=== PATIENT | female | born 1955 | race Caucasian/White ===

== ENCOUNTER → 2017-03-30 | Outpatient (CLI) | payer BC ==
--- NOTE | 2017-03-30 15:16 | PN ---
A 62-year-old female patient coming in for a compliancy check. The patient was diagnosed having moderate to severe obstructive sleep apnea with an AHI of 17.5. Currently she is on a CPAP with a pressure of 14 cm of water. She is reporting excellent clinical response to the CPAP therapy and she is waking up much more refreshed and alert during the day. No snoring while on the CPAP machine. Her sleep quality has improved considerably. She is utilizing a full-face mask and she has a good mask seal. Her compliance data over the past 30 days shows excellent use with using CPAP for more than 4 hours 100% of the time. His average CPAP use is around 6.5 hours per night. Leak is only 10 L around the mask per minute and AHI while on treatment is down to 8.8. She has no specific complaints, otherwise. BP 117/71, pulse 65, respirations 16, saturation is 94% on room air. Elberta score 0, temperature 97.5. Weight is 227. GENERAL APPEARANCE: Calm, comfortable. HEENT: Short neck, crowding of the posterior pharynx. There is no goiter or neck masses. LUNGS: Clear to auscultation. HEART: Sounds are normal. Normal S1, S2. ABDOMEN: Soft, nontender. No organomegaly. EXTREMITIES: No edema. No cyanosis or clubbing. IMPRESSION: 1. Obstructive sleep apnea with an apnea-hypopnea index of 17.5, improved considerably with CPAP therapy. 2. Residual obstructive sleep apnea with occasional hypopneas, while on CPAP pressure of 14 cm of water. Apnea-hypopnea index while on treatment is still above 5. 3. Obesity. Body mass of 38. 4. Elberta score is down to 0 from a baseline of 10. 5. Ulcerative colitis. 6. Hypertension. 7. Secondary erythrocytosis. PLAN: Will make further adjustments to further improve the sleep apnea treatment. I am suggesting switch this patient to an auto CPAP unit with a minimum pressure of 4, maximum pressure of 16 and this will hopefully lower the AHI further below 5. Keep the same mask interface. Encourage weight loss, see me back in a year's time; earlier if needed. Her treatment is successful.
== END | disposition home or self-care (01) ==
LOC: SLEEP 11:20
PROVIDERS: ATTEND Internal Medicine Critical Care Medicine
DX: G47.33 Obstructive sleep apnea (adult) (pediatric) (principal); K51.90 Ulcerative colitis, unspecified, without complications; I10 Essential (primary) hypertension; D75.1 Secondary polycythemia; E66.9 Obesity, unspecified; Z68.38 Body mass index [BMI] 38.0-38.9, adult

== ENCOUNTER → 2018-06-14 | Outpatient (CLI) | payer BC ==
--- NOTE | 2018-06-14 15:53 | PN ---
PROGRESS NOTE SLEEP CENTER PROGRESS NOTE: This is a 63-year-old female patient coming in for an annual check regarding obstructive sleep apnea. She has an AHI of 17.6, consistent with moderate to severe disease, and the patient is currently on CPAP which is in APAP mode. Minimum pressure is 5, maximum pressure of 16. She is still being treated successfully. No respiratory difficulties. No nighttime heartburn, shortness of breath or chest pain. Snoring has subsided and the patient is waking up refreshed and alert during the day. Trego score is down to 2. Based on the compliance data, the patient has been utilizing her CPAP machine 6.6 hours per night with an average pressure of 15.6 L and a leak factor of 7 L/minute. Her AHI while on treatment is down to 3. Her mask is a Simplus small size. Weight is stable at 230. No interval weight loss or weight gain. No other new complaints or comorbidities over the past one year. REVIEW OF SYSTEMS: Twelve-point review of systems was done and the positive things are all mentioned above in the history of present illness. PHYSICAL EXAMINATION: BP is 132/78, pulse 82, respiratory rate 16, temperature 98.2, saturation 96% on room air. Height is 5 feet 4 inches, weight 230. BMI is 39.4. Trego score is 2. GENERAL APPEARANCE: Calm, comfortable. HEAD: Atraumatic, normocephalic. NECK: Supple. No JVD. No goiter or neck masses. Mallampati class IV. LUNGS: Clear to auscultation. HEART: Heart sounds are regular rate and rhythm. Normal S1, S2. No S3, S4. No murmurs. ABDOMEN: Soft, nontender. No organomegaly. EXTREMITIES: No edema. No cyanosis or clubbing. IMPRESSION: Obstructive sleep apnea, symptomatic, with AHI of 17, currently on APAP, with successful treatment. PLAN: 1. Continue APAP therapy. 2. Encourage weight loss. 3. Renew the CPAP supplies. 4. See me back in a year's time in followup, earlier if needed. MMCRISTINL / IJN: [id number] /
== END | disposition home or self-care (01) ==
LOC: SLEEP 14:29
PROVIDERS: ATTEND Internal Medicine Critical Care Medicine
DX: G47.33 Obstructive sleep apnea (adult) (pediatric) (principal); Z99.89 Dependence on other enabling machines and devices

== ENCOUNTER → 2021-12-11 | Outpatient (CLI) | payer MEDICARE ==
--- NOTE | 2021-12-11 17:58 | BD ---
EXAMINATION TYPE: Axial Bone Density DATE OF EXAM: 12/11/2021 COMPARISON: NONE CLINICAL HISTORY: 66 YR OLD FEMALE.....ICD-10 CODE: M85.9 BD DISORDER Height: 63 Weight: 223 FRAX RISK QUESTIONS: NOTHING TO NOTE HERE RISK FACTORS HISTORY OF: Postmenopausal woman: YES AT AGE 49 YRS OLD Hyperparathyroidism: NO Adrenal Insufficiency: NO MEDICATIONS: Additional Medications: BP MEDS, METFORMIN, VIT D AND CALCIUM, TYLENOL Additional History: HYPERTENSION, DIABETIC, OSTEOARTHRITIS, EXAM MEASUREMENTS: Bone mineral densitometry was performed using the Lenet System. Bone mineral density as measured about the Lumbar spine is: ----- L1-L4(G/cm2): 1.463 T Score Values are as follows: ----- L1: 1.9 ----- L2: 1.1 ----- L3: 2.3 ----- L4: 4.1 ----- L1-L4: 2.4 Bone mineral density FIRST DEXA SCAN AT [facility] Bone mineral density about the R hip (g/cm2): 1.000 Bone mineral density about the L hip (g/cm2): 1.090 T Score values are as follows: -----R Neck: -0.7 -----L Neck: -0.2 -----R Total: -0.1 -----L Total: 0.7 Bone mineral density FIRST DEXA STUDY AT [facility] FRAX%S: THERE IS A 6.8% CHANCE FOR A MAJOR OSTEOPOROTIC FX AND A 0.4% FOR HER HIPS......PROBABILI TY FOR FX IN 10 YRS TIME IMPRESSION: Normal (Values between +1 and -1 indicate normal bone mass). Consider repeating this study in 5 year s or sooner if there is some new clinical indication. NOTE: T-SCORE=SD OF THE YOUNG ADULT MEAN.
--- NOTE | 2021-12-12 13:44 | MM ---
Reason for exam: screening (asymptomatic). Last mammogram was performed 3 years and 1 month ago. History: Patient is postmenopausal. Physical Findings: A clinical breast exam by your physician is recommended on an annual basis and results should be correlated with mammographic findings. MG 3D Screening Mammo W/Cad Bilateral CC and MLO view(s) were taken. Prior study comparison: November 23, 2018, mammogram, performed at [facility]. November 08, 2017, mammogram, performed at [facility]. There are scattered fibroglandular densities. No significant changes when compared with prior studies. ASSESSMENT: Negative, BI-RAD 1 RECOMMENDATION: Routine screening mammogram of both breasts in 1 year.
== END | disposition home or self-care (01) ==
LOC: MERGE 07:00 → RADMAMWWP 07:00
PROVIDERS: ATTEND Family Medicine
DX: Z12.31 Encounter for screening mammogram for malignant neoplasm of breast (principal); Z78.0 Asymptomatic menopausal state
CPT/HCPCS: 77063; 77067; 77080

== ENCOUNTER 2022-09-29 15:34 | Emergency (ER) | payer MEDICARE ==
--- NOTE | 2022-09-29 16:54 | US ---
EXAMINATION TYPE: US venous doppler duplex LE RT DATE OF EXAM: 09/29/2022 4:42 PM COMPARISON: NONE CLINICAL HISTORY: pain tender no swelling no injury. Pain right lower leg SIDE PERFORMED: Right TECHNIQUE: The lower extremity deep venous system is examined utilizing real time linear array sonog duran with graded compression, doppler sonography and color-flow sonography. VESSELS IMAGED: Common Femoral Vein Deep Femoral Vein Greater Saphenous Vein * Femoral Vein Popliteal Vein Small Saphenous Vein * Proximal Calf Veins (* superficial vessels) Right Leg: No evidence of DVT as visualized Grayscale, color doppler, spectral doppler imaging performed of the deep veins of the lower extremiti es. There is normal flow, compressibility, vascular waveforms. IMPRESSION: No evidence of deep vein thrombosis of right lower extremity.
[2022-09-29] MEDS ORDERED: CYCLOBENZAPRINE 5 MG TAB PO STA (17:46)
--- NOTE | 2022-09-29 18:22 | ED ---
Extremity Problem HPI - General Chief complaint: Extremity Problem,Nontraumatic Stated complaint: Leg Cramping Time Seen by Provider: 09/29/22 17:32 Source: patient, RN notes reviewed Mode of arrival: wheelchair Limitations: no limitations - History of Present Illness Initial comments: This is a 67-year-old female who presents to the emergency department with right calf pain. States over the last 2-3 days, she has had severe cramping in the calf, making it difficult to walk. Describes the pain as being similar to a charley horse. Denies any pain in the back or elsewhere in the leg. She has no history of similar symptoms in the past. She called her primary care provider, who advised she come to the emergency department for imaging of the leg in the event she has a DVT. She denies any chest pain or shortness of breath. Denies any fevers, chills, sore throat, cough, dyspnea, chest pain, palpitations, abdominal pain, nausea, vomiting, diarrhea, back pain, or headaches. MD Complaint: extremity pain - Related Data Home Medications Medication Instructions Recorded Confirmed Ibuprofen [Motrin] 400 mg PO Q6HR PRN 07/14/17 07/14/17 Mesalamine [Delzicol] 800 mg PO TID 07/14/17 07/14/17 Triamterene/Hydrochlorothiazid 1 tab PO DAILY 07/14/17 07/14/17 [Triamterene-Hctz 37.5-25 mg Tb] trandolapriL [Mavik] 4 mg PO DAILY 07/14/17 07/14/17 Previous Rx's Medication Instructions Recorded Acetaminophen-Codeine 300-30mg 1 tab PO Q4H PRN #20 tablet 07/14/17 [Tylenol #3] Ciprofloxacin HCl [Cipro] 500 mg PO Q12HR #20 tablet 07/14/17 Ondansetron Odt [Zofran Odt] 4 mg PO Q8HR PRN #10 tab 07/14/17 metroNIDAZOLE [Flagyl] 500 mg PO TID #30 tab 07/14/17 Allergies Allergy/AdvReac Type Severity Reaction Status Date / Time Sulfa (Sulfonamide Allergy Rash/Hives Verified 11/25/21 15:16 Antibiotics) Review of Systems ROS Statement: Those systems with pertinent positive or pertinent negative responses have been documented in the HPI. ROS Other: All systems not noted in ROS Statement are negative. 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 Absent: respiratory distress, wheezes, rales, rhonchi, stridor Cardiovascular Exam: Present: regular rate, normal rhythm, normal heart sounds. Absent: systolic murmur, diastolic murmur, rubs, gallop, clicks Extremities exam: Present: calf tenderness (right), other (No erythema, swelling, or increased heat to the leg. 2+ dorsalis pedis and tibialis posterior pulses bilaterally. Capillary refill less than 1 second bilaterally.) Neurological exam: Present: alert, oriented X3, CN II-XII intact Psychiatric exam: Present: normal affect, normal mood Skin exam: Present: warm, dry, intact, normal color. Absent: rash Course Vital Signs 09/29/22 09/29/22 16:11 18:32 Temperature 97.5 F L Pulse Rate 69 63 Respiratory 16 18 Rate Blood Pressure 188/75 126/80 O2 Sat by Pulse 96 97 Oximetry Medical Decision Making - Medical Decision Making This is a 67-year-old female who presents to the emergency department with right leg pain. Lab work obtained and found to be nonactionable. Duplex ultrasound reveals no signs of a DVT. My interpretation of the x-ray of the tib-fib reveals no signs of fractures or dislocations. She was given a dose of Flexeril emergency department, which she states did not improve her symptoms. Advised the patient that at this point, we do not have a clear cause for her symptoms. This may be musculoskeletal in nature or related to a process that we are unable to diagnose here. There are no overlying skin changes and there is no vascular compromise. Advised that she alternate with ibuprofen and Tylenol and try applying hot and cold compresses. Also suggested topical medication such as lidocaine or capsaicin cream. Instructed her to follow-up with her primary care provider to discuss additional testing and treatment. Return precautions reviewed in depth, the patient is instructed to return to the emergency department with any new, worsening, or concerning symptoms. Patient verbalized understanding. This case was discussed in detail with the attending ED physician. Presentation, findings, and treatment plan discussed in detail as well. - Lab Data Result diagrams: 09/29/22 18:39 09/29/22 18:39 Lab Results 09/29/22 09/29/22 Range/Units 18:39 18:39 WBC 9.9 (3.8-10.6) k/uL RBC 5.12 (3.80-5.40) m/uL Hgb 16.7 H (11.4-16.0) gm/dL Hct 46.0 (34.0-46.0) % MCV 90.0 (80.0-100.0) fL MCH 32.6 (25.0-35.0) pg MCHC 36.2 (31.0-37.0) g/dL RDW 13.3 (11.5-15.5) % Plt Count 270 (150-450) k/uL MPV 7.4 Neutrophils % 55 % Lymphocytes % 36 % Monocytes % 5 % Eosinophils % 2 % Basophils % 1 % Neutrophils # 5.5 (1.3-7.7) k/uL Lymphocytes # 3.6 (1.0-4.8) k/uL Monocytes # 0.5 (0-1.0) k/uL Eosinophils # 0.2 (0-0.7) k/uL Basophils # 0.1 (0-0.2) k/uL ESR 6 (0-20) mm/hr Sodium 138 (137-145) mmol/L Potassium 3.5 (3.5-5.1) mmol/L Chloride 103 (98-107) mmol/L Carbon Dioxide 25 (22-30) mmol/L Anion Gap 10 mmol/L BUN 17 (7-17) mg/dL Creatinine 0.79 (0.52-1.04) mg/dL Est GFR (CKD-EPI)AfAm >90 (>60 ml/min/1.73 sqM) Est GFR (CKD-EPI)NonAf 79 (>60 ml/min/1.73 sqM) Glucose 97 (74-99) mg/dL Calcium 9.5 (8.4-10.2) mg/dL Magnesium 1.9 (1.6-2.3) mg/dL Total Bilirubin 0.5 (0.2-1.3) mg/dL AST 22 (14-36) U/L ALT 30 (4-34) U/L Alkaline Phosphatase 130 H (38-126) U/L C-Reactive Protein 0.7 (<1.0) mg/dL Total Protein 7.2 (6.3-8.2) g/dL Albumin 4.2 (3.5-5.0) g/dL TSH 1.420 (0.465-4.680) mIU/L - Radiology Data Radiology results: report reviewed, image reviewed Disposition Clinical Impression: Cramps of right lower extremity Disposition: HOME SELF-CARE Instructions (If sedation given, give patient instructions): Leg Cramps (ED) Additional Instructions: Return to the emergency department with any new, worsening, or concerning symptoms. Alternate with ibuprofen and Tylenol for pain relief. You can try topical medications as well such as lidocaine or capsaicin cream. Continue to apply ice and heat. Follow up with your primary care provider in 1-2 days. Is patient prescribed a controlled substance at d/c from ED?: No Referrals: Jesus Rascon III, MD [Primary Care Provider] - 1-2 days
[2022-09-29 18:58] LABS: Basophils # (A) 0.1 k/uL (0-0.2); Basophils % (A) 1 %; Eosinophils # (A) 0.2 k/uL (0-0.7); Eosinophils % (A) 2 %; HGB 16.7 gm/dL (11.4-16.0); Lymphocytes # (A) 3.6 k/uL (1.0-4.8); Lymphocytes % (A) 36 %; MCH 32.6 pg (25.0-35.0); MCHC 36.2 g/dL (31.0-37.0); Mean Platelet Volume 7.4; Monocytes # (A) 0.5 k/uL (0-1.0); Monocytes % (A) 5 %; Neutrophils # (A) 5.5 k/uL (1.3-7.7); Neutrophils % (A) 55 %; Platelet Count 270 k/uL (150-450); RBC 5.12 m/uL (3.80-5.40); RDW 13.3 % (11.5-15.5); WBC 9.9 k/uL (3.8-10.6)
[2022-09-29 19:11] LABS: ALT 30 U/L (4-34); AST 22 U/L (14-36); African American GFR (CKD) >90 (>60 ml/min/1.73 sqM); Albumin 4.2 g/dL (3.5-5.0); Alkaline Phosphatase 130 U/L (38-126); Anion Gap 10 mmol/L; Blood Urea Nitrogen 17 mg/dL (7-17); C Reactive Protein 0.7 mg/dL (<1.0); Calcium 9.5 mg/dL (8.4-10.2); Carbon Dioxide 25 mmol/L (22-30); Chloride 103 mmol/L (98-107); Glucose 97 mg/dL (74-99); Magnesium 1.9 mg/dL (1.6-2.3); Non-African American GFR(CKD) 79 (>60 ml/min/1.73 sqM); Potassium 3.5 mmol/L (3.5-5.1); Sodium 138 mmol/L (137-145); Total Bilirubin 0.5 mg/dL (0.2-1.3); Total Protein 7.2 g/dL (6.3-8.2)
--- NOTE | 2022-09-29 19:28 | XR ---
EXAMINATION TYPE: XR tibia fibula RT DATE OF EXAM: 09/29/2022 7:16 PM INDICATION: Patient age:Female; 67 years old; Reason for study: Pain; COMPARISON: None TECHNIQUE: The right tibia/fibula was examined in AP and lateral projections. FINDINGS: No evidence of any acute osseous pathology, joint dislocation, or soft tissue swelling is n oted. Osteophyte formation around the right knee including the tibial plateau and the patella. IMPRESSION: No evidence of acute fracture.
[2022-09-29 19:35] LABS: Erythrocyte Sedimentation Rate 6 mm/hr (0-20)
[2022-09-29] MEDS ORDERED: ACET/COD 300 MG/30 MG STARTER PACK 6 TAB BTL PO STA (19:44)
[2022-09-29 20:14] VITALS: BP 122/80; PULSE 78; RESP 16; TEMP 98.6
== END 2022-09-29 20:13 | disposition home or self-care (01) ==
LOC: EC 15:34
DX: R25.2 Cramp and spasm (principal); I10 Essential (primary) hypertension; Z88.2 Allergy status to sulfonamides
CPT/HCPCS: 36415; 80053; 83735; 84443; 85025; 85652; 86140; 99284

== ENCOUNTER 2022-11-12 11:07 | Observation (INO) | payer MEDICARE ==
[2022-11-12 11:30] LABS: Glucose,Whole Blood 97 mg/dL (70-110)
--- NOTE | 2022-11-12 11:37 | CT ---
EXAMINATION TYPE: CT brain wo con for TPA DATE OF EXAM: 11/12/2022 COMPARISON: None HISTORY: Stroke, neuro deficits CT DLP: 1103.[address] of the brain was performed. The ventricles, basal cisterns and sulci overlying the cerebral convexities demonstrate mild enlargem ent. There is no evidence for intracranial hemorrhage or sulcal effacement. There is decreased attenuation about the periventricular white matter and deep white matter of both c erebral hemispheres, compatible with chronic small vessel ischemia. Differential diagnosis does inclu de demyelination. No mass effects are seen.No midline shift. Osseous calvarium is intact. If symptoms persist consider MRI. IMPRESSION: 1. Age related atrophic and chronic small vessel ischemic change without acute intracranial process s een at this time.
[2022-11-12 11:50] LABS: Basophils # (A) 0.1 k/uL (0-0.2); Basophils % (A) 1 %; Eosinophils # (A) 0.2 k/uL (0-0.7); Eosinophils % (A) 2 %; HCT 44.7 % (34.0-46.0); HGB 15.9 gm/dL (11.4-16.0); Lymphocytes # (A) 3.5 k/uL (1.0-4.8); Lymphocytes % (A) 40 %; MCH 31.9 pg (25.0-35.0); MCHC 35.5 g/dL (31.0-37.0); MCV 89.8 fL (80.0-100.0); Monocytes # (A) 0.4 k/uL (0-1.0); Monocytes % (A) 5 %; Neutrophils # (A) 4.4 k/uL (1.3-7.7); Neutrophils % (A) 50 %; Platelet Count 255 k/uL (150-450); RBC 4.98 m/uL (3.80-5.40); RDW 13.5 % (11.5-15.5); WBC 8.7 k/uL (3.8-10.6)
--- NOTE | 2022-11-12 11:55 | CT ---
EXAMINATION TYPE: CT angio head neck DATE OF EXAM: 11/12/2022 COMPARISON: None HISTORY: Stroke, neuro deficits CT DLP: 253.5 mGycm CONTRAST: Performed with IV Contrast, patient injected with 65 mL of Isovue 370. Combination Contrast CTA cervical carotids and [place] CTA cervical carotids with 3-D recons truction Contrast CTA of the cervical carotids was performed 3-D reconstruction imaging obtained at a separate workstation. Right carotid system: Mild plaque is seen of the right common carotid artery. There is mild plaque a lso noted at the carotid bulb and proximal ICA. No significant diameter reduction. ECA is patent. Right vertebral artery appears unremarkable. Left carotid system: Mild plaque is seen of the left common carotid artery. There is mild plaque als o noted at the carotid bulb and proximal ICA. No significant diameter reduction. ECA is patent. Lef t vertebral artery appears unremarkable. IMPRESSION: 1. No significant diameter reduction to account for the patient's symptoms. CTA [place] with 3-D reconstruction Contrast CTA of the [place] was performed 3-D reconstruction imaging obtained at a separate workstation. Vertebrobasilar system as well as intracranial portions of the internal carotid arteries and their ma viola tributaries are patent. I do not see evidence for sizable aneurysm or vascular malformation. Pl ease note MRI provides greater sensitivity and specificity. Visualized brain appears grossly unremar kable. IMPRESSION: 1. No significant abnormality. NASCET criteria was used in interpretation of this exam?
[2022-11-12 12:00] LABS: ALT 45 U/L (4-34); African American GFR (CKD) >90 (>60 ml/min/1.73 sqM); Albumin 3.7 g/dL (3.5-5.0); Anion Gap 7 mmol/L; Blood Urea Nitrogen 13 mg/dL (7-17); Calcium 8.8 mg/dL (8.4-10.2); Carbon Dioxide 25 mmol/L (22-30); Chloride 104 mmol/L (98-107); Glucose 95 mg/dL (74-99); Non-African American GFR(CKD) 85 (>60 ml/min/1.73 sqM); Sodium 136 mmol/L (137-145); Total Bilirubin 0.6 mg/dL (0.2-1.3); Total Protein 6.7 g/dL (6.3-8.2)
[2022-11-12 12:05] LABS: INR 0.9 (<1.2); Partial Thromboplastin Time 22.7 sec (22.0-30.0); Prothrombin Time 9.6 sec (9.0-12.0)
[2022-11-12 12:06] LABS: AST 34 U/L (14-36); Alkaline Phosphatase 111 U/L (38-126); Potassium 3.8 mmol/L (3.5-5.1)
--- NOTE | 2022-11-12 12:29 | XR ---
EXAMINATION TYPE: XR chest 2V DATE OF EXAM: 11/12/2022 COMPARISON: NONE HISTORY: Shortness of breath TECHNIQUE: Frontal and lateral views of the chest are obtained. FINDINGS: Scattered senescent parenchymal changes noted. Hyperinflation compatible with COPD. No evidence for infiltrate. No evidence for atelectasis. Heart size is stable. Mediastinal structures are stable and grossly unremarkable. No evidence for hilar prominence. Degenerative changes dorsal spine. IMPRESSION: 1. No evidence for acute pulmonary disease.
[2022-11-12] MEDS ORDERED: ASPIRIN 325 MG TAB PO STA (12:47)
--- NOTE | 2022-11-12 12:47 | ED ---
Neuro HPI - General Chief Complaint: Neuro Symptoms/Deficit Stated Complaint: Stroke Time Seen by Provider: 11/12/22 11:20 Source: patient, family, EMS Mode of arrival: EMS Limitations: language barrier - History of Present Illness Is the patient presenting with stroke symptoms?: Yes Last Known Well Date: 11/12/22 Last Known Well Time: 10:44 Initial Comments: 67 her old female with past history of ulcerative colitis who presents to the emergency department for sudden speech loss. She was sitting at the kitchen table with her when she had sudden onset of aphasia. She could not verbalize anything. No incontinence of bowel sounds. She had no lateralizing symptoms of extremity weakness. No facial droop. She denies headaches or visual changes. EMS was called and they did bring the patient to the hospital after she only had symptoms for approximately 20 minutes. She denies previous history of stroke. Patient is not on a blood thinner. She denies any chest pain or short of breath. 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 - Related Data Home Medications: Home Medications Medication Instructions Recorded Confirmed Triamterene/Hydrochlorothiazid 1 tab PO DAILY 07/14/17 11/12/22 [Triamterene-Hctz 37.5-25 mg Tb] trandolapriL [Mavik] 4 mg PO DAILY 07/14/17 11/12/22 Ergocalciferol [Vitamin D2 (1250 1,250 mcg PO Q7D 11/12/22 11/12/22 Mcg = 31856 Iu)] metFORMIN HCL ER [Glucophage XR] 500 mg PO W/SUPPER 11/12/22 11/12/22 Previous Rx's Medication Instructions Recorded Aspirin 325 mg PO DAILY 42 Days #42 tab 11/13/22 Atorvastatin [Lipitor] 40 mg PO DAILY #30 tab 11/13/22 Famotidine [Pepcid] 20 mg PO DAILY 10 Days #10 tablet 11/13/22 Allergies/Adverse Reactions: Allergies Allergy/AdvReac Type Severity Reaction Status Date / Time Sulfa (Sulfonamide Allergy Rash/Hives Verified 11/12/22 11:33 Antibiotics) Review of Systems ROS Statement: Those systems with pertinent positive or pertinent negative responses have been documented in the HPI. ROS Other: All systems not noted in ROS Statement are negative. General Exam Limitations: language barrier General appearance: alert, in no apparent distress Head exam: Present: atraumatic, normocephalic, normal inspection Eye exam: Present: normal appearance, PERRL, EOMI. Absent: scleral icterus, conjunctival injection, periorbital swelling ENT exam: Present: normal exam, mucous membranes moist Neck exam: Present: normal inspection. Absent: tenderness, meningismus, lymphadenopathy Respiratory exam: Present: normal lung sounds bilaterally. Absent: respiratory distress, wheezes, rales, rhonchi, stridor Cardiovascular Exam: Present: regular rate, normal rhythm, normal heart sounds. Absent: systolic murmur, diastolic murmur, rubs, gallop, clicks GI/Abdominal exam: Present: soft, normal bowel sounds. Absent: distended, tenderness, guarding, rebound, rigid Extremities exam: Present: normal inspection, full ROM, normal capillary refill. Absent: tenderness, pedal edema, joint swelling, calf tenderness Back exam: Present: normal inspection Neurological exam: Present: alert, CN II-XII intact, other (completely nonverbal) Psychiatric exam: Present: normal affect, normal mood Skin exam: Present: warm, dry, intact, normal color. Absent: rash Stroke MDM - Lab Data Result diagrams: 11/12/22 11:33 11/13/22 06:20 Lab Results 11/12/22 11/12/22 11/12/22 Range/Units 11:29 11:33 11:33 WBC 8.7 (3.8-10.6) k/uL RBC 4.98 (3.80-5.40) m/uL Hgb 15.9 (11.4-16.0) gm/dL Hct 44.7 (34.0-46.0) % MCV 89.8 (80.0-100.0) fL MCH 31.9 (25.0-35.0) pg MCHC 35.5 (31.0-37.0) g/dL RDW 13.5 (11.5-15.5) % Plt Count 255 (150-450) k/uL MPV 7.0 Neutrophils % 50 % Lymphocytes % 40 % Monocytes % 5 % Eosinophils % 2 % Basophils % 1 % Neutrophils # 4.4 (1.3-7.7) k/uL Lymphocytes # 3.5 (1.0-4.8) k/uL Monocytes # 0.4 (0-1.0) k/uL Eosinophils # 0.2 (0-0.7) k/uL Basophils # 0.1 (0-0.2) k/uL PT 9.6 (9.0-12.0) sec INR 0.9 (<1.2) APTT 22.7 (22.0-30.0) sec Sodium (137-145) mmol/L Potassium (3.5-5.1) mmol/L Chloride (98-107) mmol/L Carbon Dioxide (22-30) mmol/L Anion Gap mmol/L BUN (7-17) mg/dL Creatinine (0.52-1.04) mg/dL Est GFR (CKD-EPI)AfAm (>60 ml/min/1.73 sqM) Est GFR (CKD-EPI)NonAf (>60 ml/min/1.73 sqM) Glucose (74-99) mg/dL POC Glucose (mg/dL) 97 (70-110) mg/dL POC Glu Registered Massage Therapist ID Dilip, Roseline Calcium (8.4-10.2) mg/dL Total Bilirubin (0.2-1.3) mg/dL AST (14-36) U/L ALT (4-34) U/L Alkaline Phosphatase (38-126) U/L Troponin I (0.000-0.034) ng/mL Total Protein (6.3-8.2) g/dL Albumin (3.5-5.0) g/dL 11/12/22 11/12/22 Range/Units 11:33 11:33 WBC (3.8-10.6) k/uL RBC (3.80-5.40) m/uL Hgb (11.4-16.0) gm/dL Hct (34.0-46.0) % MCV (80.0-100.0) fL MCH (25.0-35.0) pg MCHC (31.0-37.0) g/dL RDW (11.5-15.5) % Plt Count (150-450) k/uL MPV Neutrophils % % Lymphocytes % % Monocytes % % Eosinophils % % Basophils % % Neutrophils # (1.3-7.7) k/uL Lymphocytes # (1.0-4.8) k/uL Monocytes # (0-1.0) k/uL Eosinophils # (0-0.7) k/uL Basophils # (0-0.2) k/uL PT (9.0-12.0) sec INR (<1.2) APTT (22.0-30.0) sec Sodium 136 L (137-145) mmol/L Potassium 3.8 (3.5-5.1) mmol/L Chloride 104 (98-107) mmol/L Carbon Dioxide 25 (22-30) mmol/L Anion Gap 7 mmol/L BUN 13 (7-17) mg/dL Creatinine 0.74 (0.52-1.04) mg/dL Est GFR (CKD-EPI)AfAm >90 (>60 ml/min/1.73 sqM) Est GFR (CKD-EPI)NonAf 85 (>60 ml/min/1.73 sqM) Glucose 95 (74-99) mg/dL POC Glucose (mg/dL) (70-110) mg/dL POC Glu Registered Massage Therapist ID Calcium 8.8 (8.4-10.2) mg/dL Total Bilirubin 0.6 (0.2-1.3) mg/dL AST 34 (14-36) U/L ALT 45 H (4-34) U/L Alkaline Phosphatase 111 (38-126) U/L Troponin I <0.012 (0.000-0.034) ng/mL Total Protein 6.7 (6.3-8.2) g/dL Albumin 3.7 (3.5-5.0) g/dL - Medical Decision Making Was pt. sent in by a medical professional or institution (, PA, CAMERA MACHINIST, urgent care, hospital, or prison...) When possible be specific @ -[No] Did you speak to anyone other than the patient for history (EMS, parent, family, police, friend...)? What history was obtained from this source EMS Did you review nursing and triage notes (agree or disagree)? Why? @ -[I reviewed and agree with nursing and triage notes] Were old charts reviewed (outside hosp., previous admission, EMS record, old EKG, old radiological studies, urgent care reports/EKG's, prison records)? Report findings @ -[No old charts were reviewed] Differential Diagnosis (chest pain, altered mental status, abdominal pain women, abdominal pain men, vaginal bleeding, weakness, fever, dyspnea, syncope, headache, dizziness, GI bleed, back pain, seizure, CVA, palpatations, mental health)? MDM Differential Weakness: Hypoglycemia, shock, sepsis, hyponatremia, anemia, infection, MO, ETOH, adverse medicine reaction, overdose, stroke. ... This is not meant to be an all- inclusive list EKG interpreted by me (3pts min.). yes X-rays interpreted by me (1pt min.). yes CT interpreted by me (1pt min.). yes U/S interpreted by me (1pt. min.). @ -[None done] What testing was considered but not performed or refused? (CT, X-rays, U/S, labs)? Why? @ -[None] What meds were considered but not given or refused? Why? TPA - not given as patient refused and was having rapidly resolving symptoms Did you discuss the management of the patient with other professionals (professionals i.e. , PA, CAMERA MACHINIST, lab, RT, psych nurse, hospital social worker, octave board assembler, teacher, airframe technical officer, shoe caser)? Give summary neurointensivist, admitting physician Was smoking cessation discussed for >3mins.? @ -[No] Was critical care preformed (if so, how long)? yes, 32 minutes Were there social determinants of health that impacted care today? How? (Homelessness, low income, unemployed, alcoholism, drug addiction, transportation, low edu. Level, literacy, decrease access to med. care, snf, rehab)? @ -[No] Was there de-escalation of care discussed even if they declined (Discuss DNR or withdrawal of care, Hospice)? DNR status @ -[No] What co-morbidities impacted this encounter? (DM, HTN, Smoking, COPD, CAD, Cancer, CVA, ARF, Chemo, Hep., AIDS, mental health diagnosis, sleep apnea, morbid obesity)? @ -[None] Was patient admitted / discharged? Hospital course, mention meds given and route, prescriptions, significant lab abnormalities, going to OR and other pertinent info. Upon arrival patient was placed into room trauma 2. Thorough history and physical exam was performed. Patient does have acute speech deficit. NIH is 3. Code alteplase is activated. Patient sent for CT. I did speak with Dr. Naravelta. He does recommend TPA administration. CT does come back negative. I spoke with the patient in regards to medication administration. She does have rapidly improving symptoms. She refuses TPA at this time after discussing risks and benefits. Aspirin and statin are ordered. Patient will be admitted to [facility]. Spoke with Dr. lawson. We'll consult neurology. Patient awaiting a bed on the floor in stable condition. Patient does return to her normal b aseline without any speech deficit before going to the floor Undiagnosed new problem with uncertain prognosis? yes Drug Therapy requiring intensive monitoring for toxicity (Heparin, Nitro, Insulin, Cardizem)? @ -[No] Were any procedures done? @ -[No] Diagnosis/symptom? acute aphasia - resolved, suspected tia Acute, or Chronic, or Acute on Chronic? acute Uncomplicated (without systemic symptoms) or Complicated (systemic symptoms)? complicated Side effects of treatment? @ -[No] Exacerbation, Progression, or Severe Exacerbation? @ -[No] Poses a threat to life or bodily function? How? (Chest pain, USA, MO, pneumonia, PE, COPD, DKA, ARF, appy, cholecystitis, CVA, Diverticulitis, Homicidal, Suicidal, threat to staff... and all critical care pts) yes EKG demonstrates sinus rhythm with a rate of 63. NC interval 160. QRS 115. QTC of 427. 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 Past Psychological History: No Psychological Hx Reported Past Alcohol Use History: None Reported Past Drug Use History: None Reported - Past Family History Father Additional Family Medical History / Comment(s): dementia, parkinsons Mother Family Medical History: CVA/TIA Course Vital Signs 11/12/22 11/12/22 11/12/22 11:15 11:30 11:41 Temperature 97.8 F 97.8 F Pulse Rate 96 61 63 Respiratory 18 18 18 Rate Blood Pressure 148/74 151/80 155/67 O2 Sat by Pulse 95 97 96 Oximetry 01/26/23 01/26/23 01/26/23 11:45 12:00 12:15 Temperature 97.7 F 97.7 F 97.8 F Pulse Rate 60 65 60 Respiratory 23 17 17 Rate Blood Pressure 139/71 141/70 140/68 O2 Sat by Pulse 97 96 95 Oximetry 11/12/22 11/12/22 12:30 13:52 Temperature 97.8 F 97.4 F L Pulse Rate 52 L 63 Respiratory 18 18 Rate Blood Pressure 139/79 123/58 O2 Sat by Pulse 96 96 Oximetry Critical Care Time Critical Care Time: Yes Critical Care Time: 32 mintues Disposition Clinical Impression: Cerebrovascular accident (CVA), Aphasia Disposition: ADMITTED IP TO THIS [facility] Condition: Stable Is patient prescribed a controlled substance at d/c from ED?: No Time of Disposition: 12:46 Decision to Admit Reason: Admit from EC Decision Date: 11/12/22 Decision Time: 12:46
[2022-11-12] MEDS ORDERED: ATORVASTATIN 80 MG TAB PO ONE (13:30)
--- NOTE | 2022-11-12 15:38 | P.HPIM ---
History of Present Illness This is a pleasant 67 years old female with past medical history of diabetes mellitus, hypertension, hyperlipidemia. Speech is Dr. Rascon and film examiner is Dr. Acharya Presents with transient period of inability to talk. Patient currently back to her baseline and she is fully awake and oriented, she is talking normally. As per patient and at bedside patient was doing ironing when suddenly felt her ability to talk, noticed that is with her as well, patient states that she wanted to talk but she could not wait, suspicious for expressive aphasia. It lasted for about 30-40 minutes are as per during that time she felt very dizzy but no vertigo with slight headache. And while in the emergency room patient back to her normal self. She did not receive any TPA as was planned initially. Currently she denies any weakness or numbness or blurred vision or slurred speech. Speech is normal currently. She denies any other symptoms, no chest pain dyspnea, no abdominal pain diarrhea or vomiting, no dysuria urgency. She denies smoking alcohol but she uses marijuana Alaniz. Review of Systems Review of systems CONSTITUTIONAL: No fever, no malaise, no fatigue. HEENT: No recent visual problems or hearing problems. Denied any sore throat. CARDIOVASCULAR: No orthopnea, PND, no palpitations, no syncope. PULMONARY: No shortness of breath, no cough, no hemoptysis. GASTROINTESTINAL: No diarrhea, no nausea, no vomiting, no abdominal pain. Normoactive bowel sounds. NEUROLOGICAL: No headaches, no weakness, no numbness. HEMATOLOGICAL: Denies any bleeding or petechiae. GENITOURINARY: Denies any burning micturition, frequency, or urgency. MUSCULOSKELETAL/RHEUMATOLOGICAL: Denies any joint pain, swelling, or any muscle pain. ENDOCRINE: Denies any polyuria or polydipsia. 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 Past Psychological History: No Psychological Hx Reported Past Alcohol Use History: None Reported Past Drug Use History: None Reported Medications and Allergies Home Medications Medication Instructions Recorded Confirmed Type Triamterene/Hydrochlorothiazid 1 tab PO DAILY 07/14/17 11/12/22 History [Triamterene-Hctz 37.5-25 mg Tb] trandolapriL [Mavik] 4 mg PO DAILY 07/14/17 11/12/22 History Ergocalciferol [Vitamin D2 (1250 1,250 mcg PO Q7D 11/12/22 11/12/22 History Mcg = 98171 Iu)] metFORMIN HCL ER [Glucophage XR] 500 mg PO W/SUPPER 11/12/22 11/12/22 History Allergies Allergy/AdvReac Type Severity Reaction Status Date / Time Sulfa (Sulfonamide Allergy Rash/Hives Verified 11/12/22 11:33 Antibiotics) Physical Exam Vitals: Vital Signs Temp Pulse Resp BP Pulse Ox 11/12/22 13:52 97.4 F L 63 18 123/58 96 11/12/22 12:30 97.8 F 52 L 18 139/79 96 11/12/22 12:15 97.8 F 60 17 140/68 95 11/12/22 12:00 97.7 F 65 17 141/70 96 11/12/22 11:45 97.7 F 60 23 139/71 97 11/12/22 11:41 63 18 155/67 96 11/12/22 11:30 97.8 F 61 18 151/80 97 11/12/22 11:15 97.8 F 96 18 148/74 95 Intake and Output 11/12/22 11/12/22 11/12/22 06:59 14:59 22:59 Other: Weight 105.37 kg -GENERAL: The patient is alert and oriented x3, not in any acute distress. Obese HEENT: Pupils are round and equally reacting to light. EOMI. No scleral icterus. No conjunctival pallor. Normocephalic, atraumatic. No pharyngeal erythema. No thyromegaly. CARDIOVASCULAR: S1 and S2 present. No murmurs, rubs, or gallops. PULMONARY: Chest is clear to auscultation, no wheezing or crackles. ABDOMEN: Soft, nontender, nondistended, normoactive bowel sounds. No palpable organomegaly. MUSCULOSKELETAL: No joint swelling or deformity. EXTREMITIES: No cyanosis, clubbing, or pedal edema. NEUROLOGICAL: Gross neurological examination did not reveal any focal deficits. SKIN: No rashes. no petechiae. Results CBC & Chem 7: 11/12/22 11:33 11/12/22 11:33 Labs: Abnormal Lab Results - Last 24 Hours (Table) 11/12/22 Range/Units 11:33 Sodium 136 L (137-145) mmol/L ALT 45 H (4-34) U/L Assessment and Plan Assessment: TIA, transient expressive aphasia, resolved now. Diabetes mellitus Hypertension Hyperlipidemia Obstructive sleep apnea on CPAP Obesity Plan: Continue with aspirin and Check carotid duplex Check echocardiogram Neurology consult Labs and medication were reviewed.. Continue same treatment. Continue with symptomatic treatment. Resume home medication. Monitor lytes and vitals. DVT and GI prophylaxis. Further recommendations as per clinical course of the pat ient DVT prophylaxis: Subcutaneous heparin GI Prophylaxis: Pepcid PT/OT: Pending Prognosis is guarded
[2022-11-12] MEDS ORDERED: DEXTROSE 50% SYRINGE 50 ML IVP PRN ×2 (15:39)
--- NOTE | 2022-11-12 17:09 | US ---
EXAMINATION TYPE: US carotid duplex BILAT DATE OF EXAM: 11/12/2022 COMPARISON: CTA neck earlier today CLINICAL HISTORY: TIA. TIA. 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 Prior smoker. TECHNIQUE: Carotid duplex ultrasound examination. Indirect Doppler criteria was utilized. FINDINGS: EXAM MEASUREMENTS: RIGHT: Peak Systolic Velocity (PSV) cm/sec ----- Right CCA: 71.2 ----- Right ICA: 91.9 ----- Right ECA: 84.2 ICA/CCA ratio: 1.3 RIGHT: End Diastole cm/sec ----- Right CCA: 16.2 ----- Right ICA: 21.5 ----- Right ECA: 8.4 LEFT: Peak Systolic Velocity (PSV) cm/sec ----- Left CCA: 69.9 ----- Left ICA: 97.4 ----- Left ECA: 71.0 ICA/CCA ratio: 1.4 LEFT: End Diastole cm/sec ----- Left CCA: 12.8 ----- Left ICA: 27.0 ----- Left ECA: 9.5 VERTEBRALS (direction of flow): Right Vertebral: Antegrade Left Vertebral: Antegrade Rhythm: Normal CRANE ENGINEER NOTES: No elevated velocities. Minimal Plaque seen within bilateral bulbs. IMPRESSION: No hemodynamically significant stenosis in either internal carotid artery. Findings kaitlin elate with more sensitive CTA study earlier today. Criteria for Assigning % of Stenosis / Diameter reduction (Estimation based on the indirect measurements of the internal carotid artery velocities (ICA PSV). 1. Normal (no stenosis)=ICA PSV < 125 cm/s: ratio < 2.0: ICA EDV<40 cm/s. 2. Less than 50% stenosis=ICA PSV < 125 cm/s: ratio < 2.0: ICA EDV<40 cm/s. 3. 50 to 69% stenosis=ICA PSV of 125 to 230 cm/s: ration 2.0 ? 4.0: ICA EDV 40-100 cm/s. 4. Greater than 70% stenosis to near occlusion= ICA PSV > 230 cm/s: ratio > 4.0: ICA EDV > 100 cm/s. 5. Near occlusion= ICA PSV velocities may be low or undetectable: variable ratio and ICA EDV. 6. Total occlusion=unable to detect flow.
[2022-11-12] MEDS: INSULIN ASPART (NovoLOG) 100 UNIT/ML VIAL SQ SCH ×2 (17:38→21:08)
[2022-11-12] MEDS: metFORMIN 500 MG TAB PO SCH (17:51)
[2022-11-12 20:14] LABS: Glucose,Whole Blood 154 mg/dL (70-110)
[2022-11-12] MEDS ORDERED: ATORVASTATIN 80 MG TAB PO SCH (21:00)
[2022-11-12] MEDS: HEPARIN SODIUM,PORCINE/PF 5,000 UNIT/0.5 ML SYRINGE SQ SCH (21:08)
[2022-11-12] MEDS: FAMOTIDINE 20 MG/2 ML VIAL IV SCH (21:09)
[2022-11-13] MEDS: INSULIN ASPART (NovoLOG) 100 UNIT/ML VIAL SQ SCH ×3 (05:59→16:12)
[2022-11-13] MEDS: metFORMIN 500 MG TAB PO SCH ×2 (06:00→16:12)
[2022-11-13 06:14] LABS: Glucose,Whole Blood 122 mg/dL (70-110)
[2022-11-13] MEDS: FAMOTIDINE 20 MG/2 ML VIAL IV SCH (07:39)
[2022-11-13] MEDS: HEPARIN SODIUM,PORCINE/PF 5,000 UNIT/0.5 ML SYRINGE SQ SCH (07:40)
[2022-11-13 07:47] LABS: African American GFR (CKD) >90 (>60 ml/min/1.73 sqM); Anion Gap 9 mmol/L; Blood Urea Nitrogen 15 mg/dL (7-17); Calcium 9.2 mg/dL (8.4-10.2); Carbon Dioxide 24 mmol/L (22-30); Chloride 105 mmol/L (98-107); Glucose 122 mg/dL (74-99); Non-African American GFR(CKD) 85 (>60 ml/min/1.73 sqM); Potassium 3.8 mmol/L (3.5-5.1); Sodium 138 mmol/L (137-145)
[2022-11-13] MEDS ORDERED: ASPIRIN 325 MG TAB PO SCH (09:00)
[2022-11-13] MEDS ORDERED: ATORVASTATIN 40 MG TAB PO SCH (09:00)
[2022-11-13] MEDS ORDERED: TRIAMTERENE-HCTZ 37.5-25MG 1 EACH TAB PO SCH (09:00)
[2022-11-13] MEDS ORDERED: ERGOCALCIFEROL 1,250 MCG (50,000 IU) CAPSULE PO SCH (09:00)
--- NOTE | 2022-11-13 09:37 | P.CNNES ---
History of Present Illness Consult date: 11/12/22 Requesting physician: Camilla Coy Reason for Consult: Acute CVA History of Present Illness: Patient is a 66-year-old right-handed female came to the hospital by ambulance today at 11:07 AM. EMS flow sheet not available in the chart. Patient and her family informed me that she was standing up, doing some activity, ironing her husbands clothes, when she felt dizzy, called her and told him to help him get into the chair. After that she could not speak, articulate although she was aware of everything. She could not smile. She had a blank daze, couldn't speak. They called the ambulance immediately and they were at home at around 10:35 AM. Patient was brought to the hospital and arrived at 11:07 AM. Patient states that while she was in the computed tomography scan, she started able to talk 1-2 words sentences, and she felt frustrated for not able to speak. Shortly after she was able to speak sentences. She did not have any weakness of her hands and was able to use her arms throughout this process. As per their estimation, overall this episode lasted for about 45 minutes before she started able to speak. Vital signs on arrival blood pressure 148/74, pulse rate [address] head revealed age-related atrophic and chronic small vessel ischemic changes without acute intracranial process at this time. I personally reviewed CT head, agree with the findings. CTA head and neck normal. Chest x-ray showed no evidence for acute pulmonary disease. Blood test shows normal CBC PT/PTT, normal CMP with borderline sodium 136 and ALT 45. Troponin negative. Patient states that she came to the hospital 09/29/2022 for a cramp in the right leg, could not put weight on the right leg. It would not go away. She had an ultrasound of the right leg, which was negative for DVT. This cramp lasted for about 20 half weeks before it was gone. She still feels slightly off in the right leg. She still feels some pulling sensation in back of the leg. Patient has history of hypertension for 20 years. She is also prediabetic since May 2022 when her A1c was 6.7. Patient was started on metformin at that time. At present patient feels fine. Home medications include vitamin D, metformin 500 mg daily, triamterene/HCTZ and mavik 4 mg daily. Patient not on any antiplatelet medication. Patient was a light smoker, completely quit 06/14/1994. She rarely drinks. Review of Systems Constitutional: Denies chills, Denies fever Eyes: denies blurred vision, denies pain Ears: deny: decreased hearing, ear discharge Ears, nose, mouth and throat: Denies headache, Denies sore throat Cardiovascular: Denies chest pain, Denies shortness of breath Respiratory: Denies cough, Denies dyspnea Gastrointestinal: Denies abdominal pain, Denies diarrhea, Denies nausea, Denies vomiting Genitourinary: Denies dysuria, Denies hematuria Musculoskeletal: Denies frequent falls, Denies muscle weakness, Denies myalgias Integumentary: Denies pruritus, Denies rash Neurological: Reports as per HPI Psychiatric: Denies anxiety, Denies depression Endocrine: Reports fatigue, Reports weight change 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 Past Psychological History: No Psychological Hx Reported Past Alcohol Use History: None Reported Past Drug Use History: None Reported - Past Family History Father Additional Family Medical History / Comment(s): dementia, parkinsons Mother Family Medical History: CVA/TIA Medications and Allergies Home Medications Medication Instructions Recorded Confirmed Type Triamterene/Hydrochlorothiazid 1 tab PO DAILY 07/14/17 11/12/22 History [Triamterene-Hctz 37.5-25 mg Tb] trandolapriL [Mavik] 4 mg PO DAILY 07/14/17 11/12/22 History Ergocalciferol [Vitamin D2 (1250 1,250 mcg PO Q7D 11/12/22 11/12/22 History Mcg = 47707 Iu)] metFORMIN HCL ER [Glucophage XR] 500 mg PO W/SUPPER 11/12/22 11/12/22 History Allergies Allergy/AdvReac Type Severity Reaction Status Date / Time Sulfa (Sulfonamide Allergy Rash/Hives Verified 11/12/22 11:33 Antibiotics) Physical Examination - Vital Signs Vital Signs: Vital Signs Temp Pulse Resp BP Pulse Ox 11/12/22 13:52 97.4 F L 63 18 123/58 96 11/12/22 12:30 97.8 F 52 L 18 139/79 96 11/12/22 12:15 97.8 F 60 17 140/68 95 11/12/22 12:00 97.7 F 65 17 141/70 96 11/12/22 11:45 97.7 F 60 23 139/71 97 11/12/22 11:41 63 18 155/67 96 11/12/22 11:30 97.8 F 61 18 151/80 97 11/12/22 11:15 97.8 F 96 18 148/74 95 Intake and Output 11/11/22 11/12/22 11/12/22 22:59 06:59 14:59 Other: Weight 105.37 kg Patient is an elderly female, in no acute distress. Patient is alert awake oriented to time place and person. Speech and language functions are normal. Patient can name and repeat very well. No aphasia or dysarthria. Attention, concentration and fund of knowledge is adequate. On cranial nerve examination, pupils are equal, round and reacting to light, visual garcia are full on confrontation, with no neglect on double simultaneous stimulation. Extraocular muscles are intact with no nystagmus. Face is symmetric, tongue protrudes to the midline. Palatal elevation and sensation normal, hearing and shoulder shrug normal, facial sensation normal. On muscle strength testing, there is no pronator drift and the strength is normal in arms and legs distally and proximally. While checking for left hip flexion, patient felt a cramp in the left thigh, just like she suffered from a cramp in the right leg on 09/29/2022. Deep tendon reflexes are symmetric 1+ to 2 and plantars downgoing. Sensory to touch is equal with no neglect on double simultaneous stimulation. Cerebellar function showed no ataxia for [id number]-pf-rygs testing. No dysdiadochokinesia. No ataxia for fykb-[id number] testing on either side. Tone and bulk of muscles normal. Gait deferred.. On general examination, there is no carotid bruit or murmur, S1-S2 audible. Chest is clear on consultation. Abdomen is soft nontender. No organomegaly, bowel sounds present. Peripheral pulses are present. No edema. Results - Laboratory Findings CBC and BMP: 11/12/22 11:33 11/13/22 06:20 Abnormal Lab Findings: Abnormal Labs 11/12/22 11:33 Sodium 136 L ALT 45 H Assessment and Plan Assessment: * Possible stroke/TIA. Her symptoms resolved in 45 minutes. Current NIH stroke scale is 0. * Hypertension * Prediabetes Plan: * Patient needs full stroke/TIA workup. * MRI of the brain without contrast, evaluate for acute CVA * 2-D echo with bubble study to rule out PFO * CTA head and neck showed: No stenosis, occlusion or aneurysm. * Fasting a.m. lipid panel * Hemoglobin A1c * Permissive hypertension for next 24-48 hours * Close neuro checks as per protocol. * Telemetry monitoring rule out any arrhythmia * EEG to rule out any epileptiform activity. * Patient was not taking any antiplatelet medication. Patient started on aspirin 325 mg daily. Further management based upon above test results. * DVT prophylaxis: Heparin 5000 units subcu every 8 hours * Neurology will continue ot follow. Thank you for the consult. Time with Patient: Greater than 30
--- NOTE | 2022-11-13 12:03 | P.PN ---
Subjective This is a pleasant 67 years old female with past medical history of diabetes mellitus, hypertension, hyperlipidemia. Speech is Dr. Rascon and endoc rinologist is Dr. Acharya Presents with transient period of inability to talk. Patient currently back to her baseline and she is fully awake and oriented, she is talking normally. As per patient and at bedside patient was doing ironing when suddenly felt her ability to talk, noticed that is with her as well, patient states that she wanted to talk but she could not wait, suspicious for expressive aphasia. It lasted for about 30-40 minutes are as per during that time she felt very dizzy but no vertigo with slight headache. And while in the emergency room patient back to her normal self. She did not receive any TPA as was planned initially. Currently she denies any weakness or numbness or blurred vision or slurred speech. Speech is normal currently. She denies any other symptoms, no chest pain dyspnea, no abdominal pain diarrhea or vomiting, no dysuria urgency. She denies smoking alcohol but she uses marijuana Alaniz. 11/13/2022 Patient no more episodes of aphasia or other neurological symptoms. No other new complaints. Blood pressure and vitals are stable. Glucose controlled, hemoglobin A1c 6.2% she is on metformin 250 twice a day. Glucose controlled. She was on aspirin MRI, EEG and echocardiogram are pending. Carotid duplex is unremarkable Objective - Vital Signs Vital signs: Vital Signs Temp 97.7 F 11/13/22 08:00 Pulse 63 11/13/22 08:00 Resp 18 11/13/22 08:00 BP 134/91 11/13/22 08:00 Pulse Ox 92 L 11/13/22 08:00 FiO2 Intake & Output 11/12/22 11/13/22 11/13/22 18:59 06:59 18:59 Intake Total 240 Output Total 0 Balance 0 240 Weight 105.37 kg Intake: Oral 240 Output: Urine 0 Other: Voiding Method Toilet # Voids 1 1 - Exam GENERAL: The patient is alert and oriented x3, not in any acute distress. Well developed, well nourished. HEENT: Pupils are round and equally reacting to light. EOMI. No scleral icterus. No conjunctival pallor. Normocephalic, atraumatic. No pharyngeal erythema. No thyromegaly. CARDIOVASCULAR: S1 and S2 present. No murmurs, rubs, or gallops. PULMONARY: Chest is clear to auscultation, no wheezing or crackles. ABDOMEN: Soft, nontender, nondistended, normoactive bowel sounds. No palpable organomegaly. MUSCULOSKELETAL: No joint swelling or deformity. EXTREMITIES: No cyanosis, clubbing, or pedal edema. NEUROLOGICAL: Gross neurological examination did not reveal any focal deficits. SKIN: No rashes. no petechiae. - Labs CBC & Chem 7: 11/12/22 11:33 11/13/22 06:20 Labs: Abnormal Lab Results - Last 24 Hours (Table) 11/12/22 11/12/22 11/13/22 Range/Units 11:33 20:13 06:13 Sodium 136 L (137-145) mmol/L Glucose (74-99) mg/dL POC Glucose (mg/dL) 154 H 122 H (70-110) mg/dL Hemoglobin A1c (0.0-6.0) % ALT 45 H (4-34) U/L 11/13/22 11/13/22 Range/Units 06:20 06:20 Sodium (137-145) mmol/L Glucose 122 H (74-99) mg/dL POC Glucose (mg/dL) (70-110) mg/dL Hemoglobin A1c 6.2 H (0.0-6.0) % ALT (4-34) U/L Assessment and Plan Assessment: TIA, transient expressive aphasia, resolved now. Diabetes mellitus Hypertension Hyperlipidemia Obstructive sleep apnea on CPAP Obesity Plan: Continue with aspirin and Check MRI and EEG Check echocardiogram Neurology consult Labs and medication were reviewed.. Continue same treatment. Continue with symptomatic treatment. Resume home medication. Monitor lytes and vitals. DVT and GI prophylaxis. Further recommendations as per clinical course of the patient DVT prophylaxis: Subcutaneous heparin GI Prophylaxis: Pepcid PT/OT: Pending Prognosis is guarded
[2022-11-13 12:38] LABS: Glucose,Whole Blood 85 mg/dL (70-110)
--- NOTE | 2022-11-13 12:45 | MR ---
EXAMINATION TYPE: MR brain wo con DATE OF EXAM: 11/13/2022 COMPARISON: CT brain 1 day earlier HISTORY: Stroke/TIA. TECHNIQUE: Multiplanar, multisequence imaging of the brain and brainstem is performed without IV cont rast. FINDINGS: Diffusion weighted images demonstrate no evidence of a recent infarct or other diffusion abnormality. The ventricular system and cisternal spaces are normal in size and appearance. The brain volume is a ge appropriate. Occasional small scattered focus of T2 hyperintensity seen throughout the deep and pe riventricular white matter. Less than 5 focal lesions are present. Midline structures demonstrate normal morphology. The craniocervical junction appears within normal limits. Normal vascular flow voids are present. The visualized sinuses are clear and the globes are i ntact. Patchy fluid signal inferior right mastoid air cells is present. IMPRESSION: 1. No MRI evidence for a recent infarct. Minimal nonspecific white matter changes favor product of ch ronic small vessel ischemic change in patient of this age. Possible mild inferior right-sided mastoid itis, correlate clinically.
--- NOTE | 2022-11-13 13:02 | CA ---
Transthoracic Echo Report Name: Yina Hudson Age: 67 Gender: F : 1955 Exam Date: 11/13/2022 08:11 Exam Location: [facility] Ht (in): 64 Wt (lb): 232 Ordering Physician: Artur Keita MD Attending/Referring Phys: [id number], Neela Garden Consultant Efrem Echavarria RDCS Procedure CPT: Indications: Rule out heart disease Cardiac Hx: Technical Quality: Fair Contrast 1: Total Dose (mL): Contrast 2: Total Dose (mL): MEASUREMENTS (Male / Female) Normal Values 2D ECHO LV Diastolic Diameter PLAX 4.3 cm 4.2 - 5.9 / 3.9 - 5.3 cm LV Systolic Diameter PLAX 2.7 cm IVS Diastolic Thickness 0.9 cm 0.6 - 1.0 / 0.6 - 0.9 cm LVPW Diastolic Thickness 1.4 cm 0.6 - 1.0 / 0.6 - 0.9 cm LV Relative Wall Thickness 0.5 RV Internal Dim ED PLAX 3.1 cm LA Systolic Diameter LX 4.6 cm 3.0 - 4.0 / 2.7 - 3.8 cm M-MODE Aortic Root Diameter MM 3.4 cm LA Systolic Diameter MM 5.1 cm LA Ao Ratio MM 1.5 MV E Point Septal Separation 0.6 cm AV Cusp Separation MM 2.3 cm DOPPLER AV Peak Velocity 137.5 cm/s AV Peak Gradient 7.6 mmHg AI Peak Velocity 366.5 cm/s AI Peak Gradient 53.7 mmHg AI Pressure Half Time 768.9 ms MV Area PHT 2.9 cm??? Mitral E Point Velocity 58.9 cm/s Mitral A Point Velocity 111.5 cm/s Mitral E to A Ratio 0.5 MV Deceleration Time 262.8 ms PV Peak Velocity 68.9 cm/s PV Peak Gradient 1.9 mmHg FINDINGS Left Ventricle Moderately increased posterior wall thickness. Left ventricular hypertrophy. Grade 1 diastolic dysfunction. Left ventricular ejection fraction is estimated at 60-65 %. Right Ventricle Right ventricular dilatation. Right Atrium Right atrium not well visualized. Left Atrium Moderately increased left atrial diameter. Mitral Valve Mild mitral regurgitation. Aortic Valve Mild aortic regurgitation. No aortic stenosis. Trileaflet aortic valve. Tricuspid Valve Mild tricuspid regurgitation. Pulmonic Valve Structurally normal pulmonic valve. Pericardium No pericardial or pleural effusion. Aorta Normal size aortic root and proximal ascending aorta. CONCLUSIONS Normal LV systolic function Mild aortic regurgitation Left atrial enlargement Previewed by: Dr. Anthony Del Toro MD (Electronically Signed) Final Date: 13 November 2022 13:01
[2022-11-13] MEDS ORDERED: ACETAMINOPHEN TAB 325 MG TAB PO PRN (15:01)
[2022-11-13 16:12] VITALS: BP 106/76; PULSE 78; RESP 16; TEMP 97.7
[2022-11-13 16:38] LABS: Glucose,Whole Blood 121 mg/dL (70-110)
[2022-11-13 18:55] LABS: Chol/HDL Ratio 5.56 Ratio; LDL Cholesterol,Calculated 138.4 mg/dL (0.0-131.0)
--- NOTE | 2022-11-13 20:46 | P.DS ---
Providers Date of admission: 11/12/22 12:47 Attending physician: Artur Keita MD Consults: 11/12/22 12:48 Consult Physician Routine Consulting Provider: Katie Clement Consult Reason/Comments: acute cva Do you want consulting provider notified?: Yes Primary care physician: Jesus Rascon [facility] Hospital Course: All workup came back negative , the MRI of the brain and EEG were unremarkable and show no acute stroke or seizure-like activity. Echocardiogram also showing normal left ventricular function with no significant abnormality. Telemetry also showing sinus rhythm with no significant abnormality, reviewed with Dr. Clement. However Dr. clement recommended an event monitor but patient does not want to wait to be seen by produce specialist or to place event monitor and she wants to leave and follow-up outpatient with produce specialist. She remains asymptomatic and she was eager to go home today. She was cleared for discharge by neurologist. And per his Recommendation she will need to use aspirin 325 mg for 6 weeks and then follow up of biopsy 81 mg thereafter, risks including but not limited to bleeding and benefits are explained for the patient in details and she verbalized understanding and acceptance. Patient denies any other new symptoms. Problems and management plan were discussed with the patient and he verbalized understanding and acceptance Patient was found stable and can be discharged home however he needs follow-up as an outpatient. Patient was instructed to follow up with PCP Dr. Rascon within one week and patient agrees Patient was instructed to follow up with neurologist Dr. Rey in one week and produce specialist Dr. Del Toro in one week for event monitor and she agrees to call and make her own appointments (Please refer to progress note from today for more details) Time spent more than 35 minutes Patient Condition at Discharge: Stable Plan - Discharge Summary Discharge Rx Participant: Yes New Discharge Prescriptions: New Atorvastatin [Lipitor] 40 mg PO DAILY #30 tab Aspirin 325 mg PO DAILY 42 Days #42 tab Famotidine [Pepcid] 20 mg PO DAILY 10 Days #10 tablet Continue trandolapriL [Mavik] 4 mg PO DAILY Triamterene/Hydrochlorothiazid [Triamterene-Hctz 37.5-25 mg Tb] 1 tab PO DAILY metFORMIN HCL ER [Glucophage XR] 500 mg PO W/SUPPER Ergocalciferol [Vitamin D2 (1250 Mcg = 56227 Iu)] 1,250 mcg PO Q7D Discharge Medication List Triamterene/Hydrochlorothiazid [Triamterene-Hctz 37.5-25 mg Tb] 1 tab PO DAILY 07/14/17 [History] trandolapriL [Mavik] 4 mg PO DAILY 07/14/17 [History] Ergocalciferol [Vitamin D2 (1250 Mcg = 80483 Iu)] 1,250 mcg PO Q7D 11/12/22 [History] metFORMIN HCL ER [Glucophage XR] 500 mg PO W/SUPPER 11/12/22 [History] Aspirin 325 mg PO DAILY 42 Days #42 tab 11/13/22 [Rx] Atorvastatin [Lipitor] 40 mg PO DAILY #30 tab 11/13/22 [Rx] Famotidine [Pepcid] 20 mg PO DAILY 10 Days #10 tablet 11/13/22 [Rx] Follow up Appointment(s)/Referral(s): Jesus Rascon III, MD [Primary Care Provider] - 1-2 days Shae Rey MD [Medical Doctor] - 1 Week (neurologist. Patient to make own alonzo. ) Anthony Del Toro MD [STAFF PHYSICIAN] - 1 Week (produce specialist , we recommend event monitor as oiutpatient. Patient to make own alonzo.) Patient Instructions/Handouts: Ischemic Stroke (GEN) Activity/Diet/Wound Care/Special Instructions: we recommend event monitor as oiutpatient heart healthy diet activity is restricted till you see your doctor we recommend aspirin 325 mg daily for 6 weeks and lower the dose to aspirin 81 mg daily Discharge Disposition: HOME SELF-CARE
--- NOTE | 2022-11-14 01:43 | EEG ---
ELECTROENCEPHALOGRAM REPORT PREAMBLE: This is a 67-year-old female with an episode of inability to speak. Rule out stroke, TIA versus focal seizure. EEG FINDINGS: This is a 21-channel digital EEG recorded with video competent, utilizing 10/20 international system with referential and bipolar montages. Background consists of well developed, well regulated moderate voltage activity in 10 hertz alpha. Background is posterior dominant and reactive to eye opening and closing. Photic driving response was not clearly seen. Drowsiness was seen with appearance of bilaterally symmetric theta frequency rhythm. Stage 2 sleep was attained with presence of some sleep spindles and vertex waves. No focal or generalized epileptiform activity was seen. EKG channel showed no arrhythmia. IMPRESSION: This is a normal EEG during wakefulness, drowsiness and brief stage 2 sleep. No focal, lateralized or epileptiform activity was seen. MMODL / IJN: [id number] /
== END 2022-11-13 18:33 | disposition home or self-care (01) ==
LOC: EC 11:07 → 3SCARD 12:47
PROVIDERS: ADMIT Internal Medicine; ATTEND Internal Medicine
DX: G45.9 Transient cerebral ischemic attack, unspecified (principal); R47.01 Aphasia; E11.9 Type 2 diabetes mellitus without complications; E78.5 Hyperlipidemia, unspecified; I10 Essential (primary) hypertension; G47.33 Obstructive sleep apnea (adult) (pediatric); E66.9 Obesity, unspecified; Z68.39 Body mass index [BMI] 39.0-39.9, adult; Z87.442 Personal history of urinary calculi; Z90.49 Acquired absence of other specified parts of digestive tract; Z87.19 Personal history of other diseases of the digestive system; Z98.890 Other specified postprocedural states; Z79.82 Long term (current) use of aspirin; Z79.84 Long term (current) use of oral hypoglycemic drugs; Z79.899 Other long term (current) drug therapy; Z88.2 Allergy status to sulfonamides
CPT/HCPCS: 99291; 36415; 95819; 93005; 93306; 97161; 97165; 92523; 80061; 80053; 80048; 84443; 84484; 85025; 85610; 85730; 83036; 71046; 93880; 70496; 70450; 70498; 70551; G0378 ×2; Q9967

== ENCOUNTER → 2023-09-03 | Outpatient (CLI) | payer MEDICARE | LOC: 3 N SLEEP 11:06 | PROVIDERS: ATTEND Internal Medicine Critical Care Medicine | DX: G47.33 Obstructive sleep apnea (adult) (pediatric) (principal); Z88.2 Allergy status to sulfonamides; Z87.891 Personal history of nicotine dependence ==

== ENCOUNTER → 2023-10-14 | Outpatient (CLI) | payer MEDICARE ==
--- NOTE | 2023-10-18 16:19 | MM ---
Reason for Exam: Screening (asymptomatic). Last mammogram was performed 1 year(s) and 10 month(s) ago. Patient History: Menarche at age 14. First Full-Term at age 26. Postmenopausal. Risk Values: Makenzie 5 year model risk: 1.9%. NCI Lifetime model risk: 6.4%. Prior Study Comparison: 11/08/2017 Screening Mammogram, [facility]. 11/23/2018 Screening Mammogram, [facility]. 12/11/2021 Bilateral Screening Mammogram, [facility]. Tissue Density: There are scattered fibroglandular densities. Findings: Analyzed By CAD. Central nodularity left breast middle depth is more defined. This may represent superimposition shadow and further evaluation is recommended. Otherwise, no significant change. Overall Assessment: Incomplete: need additional imaging evaluation, BI-RAD 0 Management: Special View Mammogram of the left breast. Diagnostic Breast Ultrasound of the left breast. . [facility] will attempt to contact patient to return for supplemental views and ultrasound if indicated. Electronically signed and approved by: Lorraine Calderón M.D. Radiologist
== END | disposition home or self-care (01) ==
LOC: RADMAMWWP 08:54
PROVIDERS: ATTEND Student in an Organized Health Care Education/Training Program
DX: Z12.31 Encounter for screening mammogram for malignant neoplasm of breast (principal); Z78.0 Asymptomatic menopausal state
CPT/HCPCS: 77067

== ENCOUNTER → 2023-10-27 | Outpatient (CLI) | payer MEDICARE ==
--- NOTE | 2023-10-27 10:13 | MM ---
Reason for Exam: Additional evaluation requested from abnormal screening. Last screening mammogram was performed less than 1 month ago. Patient History: Menarche at age 14. First Full-Term at age 26. Postmenopausal. Risk Values: Makenzie 5 year model risk: 1.9%. NCI Lifetime model risk: 6.4%. Prior Study Comparison: 11/23/2018 Screening Mammogram, [facility]. 12/11/2021 Bilateral Screening Mammogram, [facility]. 10/14/2023 Bilateral MG screening mammo w CAD, [facility]. Tissue Density: Left: There are scattered fibroglandular densities. Findings: Analyzed By CAD. There is a 0.5 cm oblong density in the upper outer middle position left breast 5 cm from the nipple. Under compression no persistent suspicious density is identified. Precautionary ultrasound recommended. Overall Assessment: Incomplete: need additional imaging evaluation, BI-RAD 0 Management: Diagnostic Breast Ultrasound of the left breast. A negative mammogram report should not preclude additional follow up of suspicious palpable abnormalities. Patient should continue monthly self breast exam. A clinical breast exam by your physician is recommended on an annual basis and results should be correlated with mammographic findings. Electronically signed and approved by: Jose Seth D.O. Radiologis
--- NOTE | 2023-10-27 10:30 | USB ---
Reason for Exam: Additional evaluation requested from abnormal screening. Patient History: Menarche at age 14. First Full-Term at age 26. Postmenopausal. Risk Values: Makenzie 5 year model risk: 1.9%. NCI Lifetime model risk: 6.4%. Technique: Method: Targeted. Prior Study Comparison: 11/23/2018 Screening Mammogram, [facility]. 12/11/2021 Bilateral Screening Mammogram, [facility]. 10/14/2023 Bilateral MG screening mammo w CAD, [facility]. Findings: The upper outer quadrant of the left breast, the axilla of the left breast and the retroareolar of the left breast were scanned. No solid or cystic masses are identified.. Overall Assessment: Negative, BI-RAD 1 Management: Diagnostic Mammogram of the left breast in 6 months. A clinical breast exam by your physician is recommended on an annual basis and results should be correlated with mammographic findings. This exam should not preclude additional follow-up of suspicious palpable abnormalities. Results were given to the patient verbally at the time of exam. Electronically signed and approved by: Jose Seth D.O. Radiologis
== END | disposition home or self-care (01) ==
LOC: RADMAMWWP 09:40
PROVIDERS: ATTEND Student in an Organized Health Care Education/Training Program
DX: R92.322 Mammographic fibroglandular density, left breast (principal); Z78.0 Asymptomatic menopausal state
CPT/HCPCS: 77065; 76642; G0279; 77061

== ENCOUNTER → 2023-12-13 | Outpatient (CLI) | payer MEDICARE ==
--- NOTE | 2023-12-13 17:03 | BD ---
EXAMINATION TYPE: Axial Bone Density DATE OF EXAM: 12/13/2023 CLINICAL HISTORY: 68 years old Female. ICD-10 CODE: N95.9 MENOPAUSAL AND PERIMENOPAUSAL DISORDER Height: 64 Weight: 191.5 FRAX RISK QUESTIONS: Alcohol (3 or more units per day): no Family History (Parent hip fracture): no Glucocorticoids (More than 3mos): no (Ex: prednisone, prednisolone, methylprednisolone, dexamethasone, and hydrocortisone). History of Fracture in Adulthood: no Secondary Osteoporosis: 1. Type 1 Diabetes: no 2. Hyperthyroidism: no 3. Menopause before 45: no 4. Malnutrition: no 5. Chronic liver disease: no Rheumatoid Arthritis: no Current Tobacco Use: no RISK FACTORS HISTORY OF: Surgery to Spine/Hip(right/left)/Wrist (right/left): no EXAM MEASUREMENTS: Bone mineral densitometry was performed using the [employer] System. Bone mineral density as measured about the Lumbar spine is: ----- L1-L4(G/cm2): 1.480 T Score Values are as follows: ----- L1: 1.2 ----- L2: 1.8 ----- L3: 3.3 ----- L4: 3.7 ----- L1-L4: 2.5 Z Score Values are as follows: ----- L1: 2.1 ----- L2: 2.7 ----- L3: 4.2 ----- L4: 4.6 ----- L1-L4: 3.4 Bone mineral density has: decreased -0.7 % since study of: 2021 Bone mineral density about the R hip (g/cm2): 0.908 Bone mineral density about the L hip (g/cm2): 0.979 T Score values are as follows: -----R Neck: -1.5 -----L Neck: -0.8 -----R Total: -0.8 -----L Total: -0.2 Z Score values are as follows: -----R Neck: -0.4 -----L Neck: 0.3 -----R Total: 0.0 -----L Total: 0.6 Bone mineral density has: decreased -9.8 % since study of: 2021 FRAX%s: The graph provided illustrates a 9.1% chance for a major osteoporotic fx and a 1.1% chance fo r the hips probability for fx in 10 years time. IMPRESSION: Osteopenia (T Score between -2.5 and -1). There is slightly increased risk of fracture and the patient may be considered for treatment. Re-Screen 2-5 years. NOTE: T-SCORE=SD OF THE YOUNG ADULT MEAN.
== END | disposition home or self-care (01) ==
LOC: RADBDWWP 07:24
PROVIDERS: ATTEND Student in an Organized Health Care Education/Training Program
DX: M85.89 Other specified disorders of bone density and structure, multiple sites (principal); N95.9 Unspecified menopausal and perimenopausal disorder
CPT/HCPCS: 77080

== ENCOUNTER → 2024-03-29 | Outpatient (CLI) | payer MEDICARE ==
--- NOTE | 2024-04-05 23:10 | MR ---
EXAMINATION TYPE: MR shoulder RT wo con DATE OF EXAM: 03/29/2024 COMPARISON: None. HISTORY: Right shoulder pain x6-9 months and difficult to raise arm. Unspecified rotator cuff tear. TECHNIQUE: Multiplanar, multisequence imaging of the right shoulder is performed without contrast. FINDINGS: Rotator Cuff: Increased signal distal infraspinatus tendon and to greater degree distal supraspinatus tendon with adjacent bursal fluid and partial tearing of the anterior fibers of the distal supraspin atus tendon sagittal image 23. Heterogeneity of the subscapularis tendon. Acromioclavicular Joint: Moderate narrowing and spurring. Type III acromion noted coronal image 16. Glenohumeral Joint: Small to moderate size joint effusion. No significant spurring. Labrum: Blunting and increased signal suggesting degenerative tearing. Biceps Tendon: The long head of biceps is in normal location within bicipital groove. Intracapsular p ortion less well seen but felt intact. Bone marrow signal: No focal abnormal marrow signal is appreciated. Other: No additional significant abnormality is appreciated. IMPRESSION: 1. Tendinosis of the subscapularis and infraspinatus tendons. More prominent tendinosis with addition al partial tearing of the supraspinatus tendon. 2. Degenerative superior labral tear. 3. Moderate AC joint arthropathy. Type III acromion noted.
== END | disposition home or self-care (01) ==
LOC: RADMRIMAIN 21:00
PROVIDERS: ATTEND Internal Medicine Rheumatology
DX: M75.111 Incomplete rotator cuff tear or rupture of right shoulder, not specified as traumatic (principal); M19.011 Primary osteoarthritis, right shoulder; M67.813 Other specified disorders of tendon, right shoulder